=== PATIENT | male | born 1975 | race Caucasian/White ===

== ENCOUNTER → 2023-11-21 12:09 | Outpatient (REF) | payer OTHER, SELFPAY | LOC: MRI 3T 12:09 | PROVIDERS: ATTENDING PHYSICIAN Surgery | DX: Z85.048 Personal history of other malignant neoplasm of rectum, rectosigmoid junction, and anus (principal) | CPT/HCPCS: 72197; A9575 ==

== ENCOUNTER → 2023-11-22 06:23 | Day surgery (SDC) | payer OTHER, SELFPAY | LOC: GI 06:23 | PROVIDERS: ATTENDING PHYSICIAN Surgery | DX: Z12.11 Encounter for screening for malignant neoplasm of colon (principal); Z85.048 Personal history of other malignant neoplasm of rectum, rectosigmoid junction, and anus; K62.89 Other specified diseases of anus and rectum | CPT/HCPCS: 45331; 88305 ==

== ENCOUNTER 2024-03-07 06:19 | Day surgery (SDC) | payer OTHER, SELFPAY ==
[2024-03-07 12:39] VITALS: BMI 24.2
[2024-03-07 12:40] VITALS: BP 114/85; BMI 24.2
[2024-03-07 15:17] VITALS: BP 124/75
[2024-03-07 15:30] VITALS: BP 130/75
[2024-03-07 15:45] VITALS: BP 127/87
== END 2024-03-07 16:00 | disposition home or self-care (01) ==
LOC: SDS 06:19
PROVIDERS: ATTENDING PHYSICIAN Surgery
DX: Z12.11 Encounter for screening for malignant neoplasm of colon (principal); Z85.048 Personal history of other malignant neoplasm of rectum, rectosigmoid junction, and anus; Z98.890 Other specified postprocedural states
CPT/HCPCS: G0105

== ENCOUNTER 2024-08-28 06:12 | Day surgery (SDC) | payer OTHER, SELFPAY | END 2024-08-28 10:42 | disposition home or self-care (01) | LOC: GI 06:12 | PROVIDERS: ATTENDING PHYSICIAN Surgery | DX: Z12.11 Encounter for screening for malignant neoplasm of colon (principal); Z85.048 Personal history of other malignant neoplasm of rectum, rectosigmoid junction, and anus | CPT/HCPCS: 45330 ==

== ENCOUNTER → 2024-09-19 12:10 | Outpatient (REF) | payer OTHER, SELFPAY | LOC: MRI 3T 12:10 | PROVIDERS: ATTENDING PHYSICIAN Surgery | DX: C20 Malignant neoplasm of rectum (principal) | CPT/HCPCS: 72197; A9575 ==

== ENCOUNTER 2025-01-02 06:10 | Day surgery (SDC) | payer OTHER, SELFPAY ==
[2025-01-02 06:10] VITALS: BMI 24.3
[2025-01-02 06:15] VITALS: BP 138/86
[2025-01-02 06:30] VITALS: BMI 24.3
[2025-01-02] MEDS: NORMOSOL-R/PLASMALYTE-A 1000 IV (06:30)
[2025-01-02] MEDS: TYLENOL 1000 MG PO (06:31)
[2025-01-02 08:40] VITALS: BP 123/72
[2025-01-02 08:45] VITALS: BP 114/71
[2025-01-02 09:00] VITALS: BP 124/79
[2025-01-02 09:10] VITALS: BP 120/88
== END 2025-01-02 09:20 | disposition home or self-care (01) ==
LOC: SDS 06:10
PROVIDERS: ATTENDING PHYSICIAN Surgery
DX: C20 Malignant neoplasm of rectum (principal); Z85.048 Personal history of other malignant neoplasm of rectum, rectosigmoid junction, and anus; Z45.2 Encounter for adjustment and management of vascular access device
CPT/HCPCS: 45330; 36590

== ENCOUNTER → 2025-03-12 12:52 | Outpatient (REF) | payer OTHER, SELFPAY | LOC: RCS 12:52 | PROVIDERS: ATTENDING PHYSICIAN Physician Assistant | DX: I35.1 Nonrheumatic aortic (valve) insufficiency (principal); C20 Malignant neoplasm of rectum; Z92.21 Personal history of antineoplastic chemotherapy | CPT/HCPCS: 93306; 93356 ==

== ENCOUNTER → 2025-05-13 17:46 | Outpatient (REF) | payer OTHER, SELFPAY | LOC: MRI 17:46 | PROVIDERS: ATTENDING PHYSICIAN Surgery | DX: C20 Malignant neoplasm of rectum (principal) | CPT/HCPCS: 72197; A9575 ==